=== PATIENT | male | born 1930 | race Caucasian/White ===

== ENCOUNTER 2017-05-26 16:57 | Emergency (ER) | payer MEDICARE, BC ==
--- NOTE | 2017-05-26 18:23 | EDM.PDOC ---
ED HPI GENERAL MEDICAL PROBLEM - General Chief Complaint: Respiratory Problem Stated Complaint: SOB Time Seen by Provider: 05/26/17 17:18 Source of Information: Reports: Patient History Limitations: Reports: No Limitations - History of Present Illness INITIAL COMMENTS - FREE TEXT/NARRATIVE: c/o PO 81% pt went to clinic with c/o swelling in his feet and ankles, his PO was 81% and he was sent here, however his PO is 96% here on 3 l/min NC from both our wall unit and his compressor pt has chronic sob, nothing new, says he is "mean and lean" here with and daughter Pt willing to have blood drawn but unwilling to stay to get the results and make a better determination as the etiology of his edema, impatient to get home pt denies heart trouble, yet 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, pt now says he had "repair" of his MV BNP mildly inc'd 2 y ago, pt denies HF, albumin wnl - Related Data Allergies Allergy/AdvReac Type Severity Reaction Status Date / Time warfarin sodium Allergy Severe Bleeding Verified 07/19/13 10:17 [From Coumadin] Home Meds: Home Meds Albuterol [Proventil HFA] 1 puff INH Q4H PRN 07/18/13 [History] Albuterol/Ipratropium [DuoNeb 3.0-0.5 MG/3 ML] 2.5 mg INH QID 07/18/13 [History] Dextromethorphan/guaiFENesin [Mucinex DM ER 600-30 MG] 1 tab PO BID PRN [History] Digoxin [Lanoxin] 0.125 mg PO ASDIRECTED 07/18/13 [History] Digoxin [Lanoxin] 0.25 mg PO ASDIRECTED 07/18/13 [History] Formoterol [Foradil] 1 cap INH BID 07/18/13 [History] Metoprolol Succinate [Toprol XL] 50 mg PO DAILY 07/18/13 [History] Mometasone Furoate [Asmanex 220 MCG] 1 puff INH DAILY 07/18/13 [History] Omeprazole [Prilosec] 20 mg PO DAILY 07/18/13 [History] Terazosin [Hytrin] 2 mg PO ASDIRECTED 07/18/13 [History] Past Medical History HEENT History: Reports: Epistaxis Respiratory History: Reports: COPD Other Respiratory History: History of COPD and productive cough Social & Family History - Family History Family Medical History: Noncontributory - Tobacco Use Smoking Status *Q: Never Smoker - Caffeine Use Caffeine Use: Reports: Coffee - Recreational Drug Use Recreational Drug Use: No ED ROS GENERAL - Review of Systems Review Of Systems: See Below Constitutional: Reports: No Symptoms. Denies: Fever, Chills, Malaise, Weakness HEENT: Reports: No Symptoms Respiratory: Reports: Shortness of Breath. Denies: Cough Cardiovascular: Reports: No Symptoms. Denies: Chest Pain Endocrine: Reports: No Symptoms GI/Abdominal: Reports: No Symptoms : Reports: No Symptoms Musculoskeletal: Reports: No Symptoms Skin: Reports: No Symptoms Neurological: Reports: No Symptoms Psychiatric: Reports: No Symptoms Hematologic/Lymphatic: Reports: No Symptoms Immunologic: Reports: No Symptoms ED EXAM, GENERAL - Physical Exam Exam: See Below Exam Limited By: No Limitations General Appearance: Alert, WD/WN, No Apparent Distress, Other ([place]) Ears: Normal External Exam Nose: Normal Inspection, Normal Mucosa, No Blood Throat/Mouth: Normal Inspection, Normal Voice, No Airway Compromise Head: Atraumatic, Normocephalic Neck: Normal Inspection, Supple, Non-Tender, Full Range of Motion Respiratory/Chest: Other (fair AE, rales at base up 25% b/l, no cough, no dyspnea, no accessory muscles, no exp wheeze) Cardiovascular: Regular Rate, Rhythm, No JVD, No Rub, Other (2/6 TYLER at LSB, 2+ foot and ankle edema b/l, trace pretib edema to knees) Back Exam: Normal Inspection, Full Range of Motion, NT Neurological: Alert, Oriented, No Motor/Sensory Deficits Psychiatric: Normal Affect, Normal Mood Skin Exam: Warm, Dry, Intact, Normal Color, No Rash Lymphatic: No Adenopathy Course - Orders/Labs/Meds Orders: Active Orders 24 hr Category Date Time Status C-REACTIVE PROTEIN [CHEM] Stat Lab 05/26/17 18:15 Ordered CBC WITH AUTO DIFF [HEME] Stat Lab 05/26/17 18:15 Ordered COMPREHENSIVE METABOLIC PN,CMP [CHEM] Stat Lab 05/26/17 18:15 Ordered DIGOXIN [CHEM] Stat Lab 05/26/17 18:16 Ordered PRO B-TYPE NATRIUR PEPT,BNPPRO [CHEM] Stat Lab 05/26/17 18:15 Ordered TSH ULTRASENSITIVE [CHEM] Stat Lab 05/26/17 18:16 Ordered - Re-Assessments/Exams Free Text/Narrative Re-Assessment/Exam: 05/26/17 18:24 pt currently on furosemide, dig and metoprolol. Unclear if he needs a higher dose of furosemide, yet pt not willing to wait for further evaluation here. EKG and CxR not done as pt not willing. Will have pt review lab results with PCP. Departure - Departure Time of Disposition: 18:25 Disposition: Home, Self-Care 01 Condition: Good Clinical Impression: Edema - Discharge Information Referrals: Ryan Araujo MD [Primary Care Provider] - Additional Instructions: See Dr Araujo in 1-2 days to review your blood test results and for further recommendations regarding the swelling in your feet and ankle. You may need additional medications or adjustments in your current meds, about which he can advise you. Call your Physician or Return to Emergency Department if: * Your condition worsens in any way. * You develop fever greater than 100.4. * You have vomitting that does not stop with medications. * You have pain that is not controlled with medications. - My Orders Last 24 Hours: My Active Orders 05/26/17 18:15 C-REACTIVE PROTEIN [CHEM] Stat CBC WITH AUTO DIFF [HEME] Stat COMPREHENSIVE METABOLIC PN,CMP [CHEM] Stat PRO B-TYPE NATRIUR PEPT,BNPPRO [CHEM] Stat 05/26/17 18:16 DIGOXIN [CHEM] Stat TSH ULTRASENSITIVE [CHEM] Stat - Assessment/Plan Last 24 Hours: My Active Orders 05/26/17 18:15 C-REACTIVE PROTEIN [CHEM] Stat CBC WITH AUTO DIFF [HEME] Stat COMPREHENSIVE METABOLIC PN,CMP [CHEM] Stat PRO B-TYPE NATRIUR PEPT,BNPPRO [CHEM] Stat 05/26/17 18:16 DIGOXIN [CHEM] Stat TSH ULTRASENSITIVE [CHEM] Stat
== END 2017-05-26 18:35 | disposition home or self-care (01) ==
LOC: FB.ED 16:57
DX: M25.462 Effusion, left knee (principal); M25.461 Effusion, right knee; J44.9 Chronic obstructive pulmonary disease, unspecified; Z88.8 Allergy status to other drugs, medicaments and biological substances; Z79.899 Other long term (current) drug therapy
CPT/HCPCS: 36415; 80053; 80162; 83880; 84443; 85025; 86140; 99283; 99284